=== PATIENT | male | born 1995 | race Caucasian/White ===

== ENCOUNTER 2018-11-06 08:51 | Emergency (ER) | payer BC, MEDICARE, OTHER ==
[~2018-11-06] VITALS: Ht 177.8 cm; Wt 89.4 kg
[2018-11-06 09:08] VITALS: BP 136/79
[2018-11-06 09:41] LABS: BACTERIA,URINE 0 /HPF (0-FEW); BILIRUBIN,URINE NEG (NEG); CLARITY,URINE CLEAR; COLOR,URINE AMBER; GLUCOSE,URINE NEG (NEG); NITRITE,URINE NEG (NEG); RBC,URINE 0 /HPF (0-2); SQUAMOUS EPITHELIAL CELL,UR OCC /LPF; UROBILINOGEN,URINE 0.2 mg/dL (0.2 mg/dL); WBC,URINE RARE /HPF (0-4)
--- NOTE | 2018-11-06 09:45 | PHYS DOC ---
Past History Past Medical History: No Pertinent History Past Surgical History: No Surgical History Alcohol Use: None Drug Use: None Adult General Chief Complaint Chief Complaint: GROIN PAIN [facility] HPI Patient is a 23 year old male who presents with complaining of left testicular pain for 6 days. Patient complaining of gradual onset of left groin area and upper portion of left testicle pain for the last 6 days as a constant pain without change with urination or activity. Patient states the pain is more in groin and into his testicle and denies injury, urinary symptom, edema and erythema, penile discharge, new sexual partner, history of STD and testicular injury. Patient states he did not take any pain medication. Review of Systems Review of Systems Constitutional: Denies fever or chills [] Eyes: Denies change in visual acuity, redness, or eye pain [] HENT: Denies nasal congestion or sore throat [] Respiratory: Denies cough or shortness of breath [] Cardiovascular: No additional information not addressed in HPI [] GI: Denies abdominal pain, nausea, vomiting, bloody stools or diarrhea [] : Denies dysuria or hematuria , reports testicular pain[] Musculoskeletal: Denies back pain or joint pain [] Integument: Denies rash or skin lesions [] Neurologic: Denies headache, focal weakness or sensory changes [] Endocrine: Denies polyuria or polydipsia [] All other systems were reviewed and found to be within normal limits, except as documented in this note. Physical Exam Physical Exam Constitutional: Well developed, well nourished, mild distress, non-toxic appearance. [] HENT: Normocephalic, atraumatic. Eyes: PERRLA, EOMI, conjunctiva normal, no discharge. [] Neck: Normal range of motion, no tenderness, supple, no stridor. [] Cardiovascular:Heart rate regular rhythm, no murmur [] Lungs & Thorax: Bilateral breath sounds clear to auscultation [] Abdomen: Bowel sounds normal, soft, no tenderness, no masses, no pulsatile masses, no hernia. Genital exam with present of artificial limb maker showed tenderness in superior pole left testicle without sign of torsion or edema or hydrocephalus of testicle, no inguinal hernia. Skin: Warm, dry, no erythema, no rash. [] Back: No tenderness, no CVA tenderness. [] Extremities: No tenderness, no cyanosis, no clubbing, ROM intact, no edema. [] Neurologic: Alert and oriented X 3, no focal deficits noted. [] Psychologic: Affect normal, judgement normal, mood normal. [] Current Patient Data Vital Signs Vital Signs Date Time Temp Pulse Resp B/P (MAP) Pulse Ox O2 Delivery O2 Flow Rate FiO2 11/06/18 09:08 98.1 86 20 100 Room Air Lab Results Laboratory Tests Test 11/06/18 09:15 Urine Collection Type Unknown Urine Color Marlen Urine Clarity Clear Urine pH 5.5 Urine Specific Smith >=1.030 Urine Protein 30 mg/dl (NEG-TRACE) Urine Glucose (UA) Neg mg/dL (NEG) Urine Ketones (Stick) Trace mg/dL (NEG) Urine Blood Neg (NEG) Urine Nitrite Neg (NEG) Urine Bilirubin Neg (NEG) Urine Urobilinogen Dipstick 0.2 mg/dL (0.2 mg/dL) Urine Leukocyte Esterase Neg (NEG) Urine RBC 0 /HPF (0-2) Urine WBC Rare /HPF (0-4) Urine Squamous Epithelial Cells Occ /LPF Urine Bacteria 0 /HPF (0-FEW) Urine Mucus Marked /LPF EKG EKG [] Radiology/Procedures Radiology/Procedures [] Course & Med Decision Making Course & Med Decision Making Pertinent Labs reviewed. (See chart for details) Evolution of patient in ER showed 23-year-old male patient with complaining of pain in superior pole of left testicle for 6 days. Patient had tenderness in the epididymal area. UA did not show infection. Plan discharge patient home with diagnosis of epididymitis and instruction to increase fluid intake and follow up with his primary care physician. Dragon Disclaimer Dragon Disclaimer This electronic medical record was generated, in whole or in part, using a voice recognition dictation system. Departure Departure: Impression: Primary Impression: Epididymitis, left Disposition: HOME, SELF-CARE (@0944) Condition: STABLE Referrals: NON,STAFF (PCP) Patient Instructions: Epididymitis Additional Instructions: Drink plenty of liquids Follow-up with your primary care physician in 3-5 days Return to ER if not getting better Scripts Ciprofloxacin Hcl (CIPRO) 500 Mg Tablet 1 TAB PO BID for epididymitis, #28 TAB Prov: DESTINI OSBORN MD 11/06/18 Ibuprofen (IBUPROFEN) 800 Mg Tablet 1 TAB PO TID for pain, #30 TAB Prov: DESTINI OSBORN MD 11/06/18 DESTINI OSBORN MD Nov 06, 2018 09:44
[2018-11-06] MEDS ORDERED: IBUP800T19 PO (09:48)
[2018-11-06] MEDS ORDERED: CIPR500T94 PO (09:48)
[2018-11-06] MEDS ORDERED: IBUPROFEN 800 MG TABLET. PO ONE ×2 (09:49→10:00)
[2018-11-06] MEDS ORDERED: IBUPROFEN 400 MG TABLET. PO ONE ×2 (09:53→10:15)
== END 2018-11-06 10:00 | disposition home or self-care (01) ==
LOC: ER 08:51
DX: N45.1 Epididymitis (principal)
CPT/HCPCS: 81001; 99283

== ENCOUNTER → 2018-11-08 | Outpatient (CLI) | payer BC ==
[2018-11-06 09:08] VITALS: BP 136/79
[~2018-11-08] MED LIST: CIPR500T94 PO; IBUP800T19 PO; IOHEXOL 240 MG/ML 50ML VIAL. ONE; IOHEXOL 240 MG/ML 50ML VIAL. PO ONE; IOHEXOL 300 MG/ML 75 ML VIAL. IV ONE
--- NOTE | 2018-11-08 11:52 | RAD ---
Examination: TESTICULAR/SCROTUM History: LEFT TESTICULAR PAIN Comparison/Correlation: None Findings: Scrotal ultrasound exam was performed. Right testicle measures 4 cm by 2.3 cm x 3.6 cm. Left testicle measures 4.7 cm x 2.1 cm x 3.2 cm. Testicular flow and echotexture are symmetric and normal. No mass. Right epididymis measures 1.2 cm and left epididymis measures 1.9 cm. There is a small cyst or spermatocele involving the right epididymal head measuring up to 0.5 cm diameter. No abnormal flow. Trace bilateral hydroceles suggested. Impression: No evidence of testicular torsion. No findings to suggest epididymoorchitis. Electronically signed by: Masoud Khan MD (11/08/2018 11:49 AM) [id number]
[2018-11-08] MEDS: IOHEXOL 300 MG/ML 75 ML VIAL. IV ONE (12:06)
--- NOTE | 2018-11-08 12:27 | RAD ---
EXAM: Abdomen and pelvis CT with intravenous contrast. HISTORY: Left lower quadrant pain. TECHNIQUE: Computed tomographic images of the abdomen and pelvis were obtained following the administration of 75 cc Omnipaque 300 intravenous contrast. Multiplanar reformatting was performed. *One or more of the following individualized dose reduction techniques were utilized for this examination: 1. Automated exposure control. 2. Adjustment of the mA and/or kV according to patient size. 3. Use of iterative reconstruction technique. COMPARISON: None. FINDINGS: Evaluation of the lower thorax is unremarkable. No hepatic lesion is seen. The gallbladder, pancreas, adrenal glands and kidneys are unremarkable. There is no appendicitis. There is no bowel obstruction or abnormal bowel wall thickening. There is slight circumferential wall thickening involving the distal descending colon and proximal sigmoid colon due to underdistention or peristalsis. There is no stranding fatty stranding to suggest colitis. The urinary bladder is unremarkable. There is no lymphadenopathy. There is no suspicious osseous lesion. IMPRESSION: No acute abdominal or pelvic finding. Electronically signed by: Alix Gould MD (11/08/2018 12:24 PM) [place] [id number]
== END | disposition home or self-care (01) ==
LOC: CT 10:59
PROVIDERS: ATTEND Family Medicine
DX: N45.1 Epididymitis (principal); K40.90 Unilateral inguinal hernia, without obstruction or gangrene, not specified as recurrent
CPT/HCPCS: 74177; 76870; Q9967